=== PATIENT | male | born 1965 | race Caucasian/White ===

== ENCOUNTER 2021-06-13 05:25 | Emergency (ER) | payer OTHER ==
[2021-06-13 05:40] VITALS: PULSE 84; TEMP 98.2; BMI 28.7
[2021-06-13] MEDS ORDERED: KETOROLAC TROMETHAMINE 30 MG/1 ML VIAL IM ONE (05:56)
[2021-06-13] MEDS ORDERED: LIDOCAINE 5% TOPICAL PATCH TP ONE (05:56)
[2021-06-13] MEDS ORDERED: ACETAMINOPHEN 500 MG TABLET (FP) PO ONE (07:54)
[2021-06-13] MEDS ORDERED: ACETAMINOPHEN 325 MG TABLET (FP) ONE (08:08)
[2021-06-13 09:21] VITALS: BP 171/95
[2021-06-13] MEDS ORDERED: LIDOCAINE PATCH REMOVAL MC SCH (22:00)
== END 2021-06-13 09:22 | disposition home or self-care (01) ==
LOC: JER 05:25
PROC: 3E0233Z Introduction of Anti-inflammatory into Muscle, Percutaneous Approach (ICD-10-PCS; principal; 2021-06-13)
DX: M25.511 Pain in right shoulder (principal); X50.3XXA Overexertion from repetitive movements, initial encounter
CPT/HCPCS: 93005; 93010; 99284-25